=== PATIENT | male | born 1995 | race Caucasian/White ===

== ENCOUNTER 2017-07-28 19:24 | Inpatient (IN) | payer OTHER ==
[2017-07-28 21:00] VITALS: BMI 21.9
--- NOTE | 2017-07-28 21:31 | HP ---
CIWA Score - CIWA Score Nausea/Vomitin Muscle Tremors: 4-Moderate,w/Arms Extend Anxiety: 4-Mod. Anxious/Guarded Agitation: 4-Moderately Restless Paroxysmal Sweats: 1-Minimal Palms Moist Orientation: 0-Oriented Tacttile Disturbances: 0-None Auditory Disturbances: 0-None Visual Disturbances: 0-None Headache: 3-Moderate CIWA-Ar Total Score: 18 Admission ROS BHS - HPI Chief Complaint: Alcohol withdrawal symptoms Allergies/Adverse Reactions: Allergies Allergy/AdvReac Type Severity Reaction Status Date / Time No Known Allergies Allergy Verified 07/28/17 21:27 History of Present Illness: 22 years old male with long history of alcohol dependence and 4 years history of cocaine dependence is seeking admission to detox. This is patient's first detox and first admission to [facility]. He denies past medical history and suicidal ideation at this time. Exam Limitations: No Limitations - Ebola screening Have you traveled outside of the country in the last 21 days: No (N) Have you had contact with anyone from an Ebola affected area: No Have you been sick,other than usual withdrawal symptoms: No Do you have a fever: No - Review of Systems Constitutional: Chills, Malaise, Night Sweats EENT: reports: No Symptoms Reported Respiratory: reports: No Symptoms reported Cardiac: reports: No Symptoms Reported GI: reports: No Symptoms Reported : reports: No Symptoms Reported Musculoskeletal: reports: Back Pain, Muscle Pain, Muscle Weakness Integumentary: reports: Dryness, Flushing Neuro: reports: Headache, Tingling, Tremors Endocrine: reports: No Symptoms Reported Hematology: reports: No Symptoms Reported Psychiatric: reports: Agitated, Anxious, Depressed Other Systems: Reviewed and Negative Patient History - Patient Medical History Hx Anemia: No Hx Asthma: No Hx Chronic Obstructive Pulmonary Disease (COPD): No Hx Cancer: No Hx Cardiac Disorders: No Hx Congestive Heart Failure: No Hx Hypertension: No Hx Hypercholesterolemia: No Hx Pacemaker: No HX Cerebrovascular Accident: No Hx Seizures: No Hx Dementia: No Hx Diabetes: No Hx Gastrointestinal Disorders: No Hx Liver Disease: No Hx Genitourinary Disorders: No Hx Sexually Transmitted Disorders: No Hx Renal Disease (ESRD): No Hx Thyroid Disease: No Hx Human Immunodeficiency Virus (HIV): No (Never tested) Hx Hepatitis C: No Hx Depression: No Hx Suicide Attempt: No (Denies suicide attempt and suicidal ideation at this time) Hx Bipolar Disorder: No Hx Schizophrenia: No - Patient Surgical History Past Surgical History: No - PPD History Previous Implant?: Yes Documented Results: Negative w/o proof Implanted On Prior [facility] Admission?: No PPD to be Administered?: Yes - Reproductive History Patient is a Female of Child Bearing Age (11 -55 yrs old): No (MALE) - Smoking Cessation Smoking history: Current every day smoker Have you smoked in the past 12 months: Yes Aproximately how many cigarettes per day: 20 Hx Chewing Tobacco Use: No Initiated information on smoking cessation: Yes 'Breaking Loose' booklet given: 07/28/17 - Substance & Tx. History Hx Alcohol Use: Yes Hx Substance Use: Yes Substance Use Type: Alcohol, Cocaine Hx Substance Use Treatment: No - Substances Abused Alcohol Route: Oral Frequency: Daily Amount used: VODKA - I PINT Age of first use: 13 Date of Last Use: 07/28/17 Cocaine Route: Smoking Frequency: Daily Amount used: 5 GRAMS Age of first use: 18 Date of Last Use: 07/28/17 Family Disease History - Family Disease History Family History: Denies Admission Physical Exam [facility] - Vital Signs Vital Signs: Vital Signs - 24 hr 07/28/17 20:58 Temperature 97.8 F Pulse Rate 97 H Respiratory 20 Rate Blood Pressure 137/89 - Physical General Appearance: Yes: Moderate Distress HEENTM: Yes: EOMI, Normal ENT Inspection, Normocephalic, Normal Voice, LEANA Respiratory: Yes: Lungs Clear, Normal Breath Sounds, No Respiratory Distress Neck: Yes: Supple Breast: Yes: Breast Exam Deferred Cardiology: Yes: Tachycardia Abdominal: Yes: Normal Bowel Sounds, Soft Genitourinary: Yes: Within Normal Limits Back: Yes: Normal Inspection Musculoskeletal: Yes: Back pain Extremities: Yes: Tremors Neurological: Yes: Alert, Normal Mood/Affect Integumentary: Yes: Warm - Diagnostic (1) Alcohol dependence with uncomplicated withdrawal Current Visit: Yes Status: Chronic (2) Cocaine dependence, uncomplicated Current Visit: Yes Status: Chronic S Breath Alcohol Content Breath Alcohol Content: 0.029 Urine Drug Screen - Results Drug Screen Negative: No Urine Drug Screen Results: OBIE-Cocaine
[2017-07-28] MEDS ORDERED: MAGNESIUM HYDROX 2400MG/30ML ORAL SUSPENSION 30 ML CUP PO PRN (21:40)
[2017-07-28] MEDS ORDERED: IBUPROFEN 400 MG TABLET (FP) PO PRN (21:40)
[2017-07-28] MEDS ORDERED: NICOTINE POLACRILEX 2 MG GUM BUC PRN (21:40)
[2017-07-28] MEDS ORDERED: MAG HYDROX/AL HYDROX/SIMETH 30 ML UNIT-DOSE CUP PO PRN (21:40)
[2017-07-28] MEDS ORDERED: MAGNESIUM CITRATE 300 ML BOTTLE PO PRN (21:40)
[2017-07-28] MEDS ORDERED: MENTHOL/PHENOL 1 EACH UD MM PRN (21:40)
[2017-07-28] MEDS ORDERED: LOPERAMIDE HCL 2 MG CAPSULE PO PRN (21:40)
[2017-07-28] MEDS ORDERED: P-EPHED 60MG/TRIPROLIDI 2.5MG TABLET PO PRN (21:40)
[2017-07-28] MEDS ORDERED: ACETAMINOPHEN 325 MG TABLET (FP) PO PRN (21:45)
[2017-07-28] MEDS ORDERED: guaiFENesin/D-METHORPHAN HB 10 ML UNIT-DOSE CUPS PO PRN (21:45)
[2017-07-28] MEDS ORDERED: MELATONIN 5 MG TABLETS PO PRN (22:00)
[2017-07-29] MEDS ORDERED: chlordiazePOXIDE HCL 25 MG CAPSULE PO ONE (01:49)
[2017-07-29] MEDS ORDERED: chlordiazePOXIDE HCL 25 MG CAPSULE PO PRN (01:49)
[2017-07-29] MEDS: THIAMINE HCL 100 MG TABLET (FP) PO SCH ×2 (03:16→22:19)
[2017-07-29] MEDS ORDERED: chlordiazePOXIDE HCL 25 MG CAPSULE PO SCH (05:00)
--- NOTE | 2017-07-29 10:00 | PN ---
BHS CIWA - CIWA Score Nausea/Vomitin Muscle Tremors: 3 Anxiety: 3 Agitation: 3 Paroxysmal Sweats: 1-Minimal Palms Moist Orientation: 0-Oriented Tacttile Disturbances: 1-Very Mild Itch/Numbness Auditory Disturbances: 1-Very Mild Visual Disturbances: 0-None Headache: 1-Very Mild CIWA-Ar Total Score: 16 BHS Progress Note (SOAP) Subjective: ALERT,IRRITABLE,TREMOR,INTERRUPTED SLEEP,PAIN IN THE BODY AND BACK Objective: 07/29/17 09:56 Vital Signs Temperature 97.7 F 07/29/17 06:00 Pulse Rate 75 07/29/17 06:00 Respiratory Rate 18 07/29/17 06:00 Blood Pressure 124/67 07/29/17 06:00 O2 Sat by Pulse Oximetry (%) EKG NSR,INCOMPLETE RBBB,QT 362/422 LAB PENDING Assessment: 07/29/17 09:59 WITHDRAWAL SYMPTOM Plan: CONTINUE DETOX,PATIENT REQUESTED REGIMEN TO CHAGE TO VALIUM INSTEAD OF LIBRIUM
[2017-07-29 10:05] LABS: HEMATOCRIT 45.4 % (35.4-49); HEMOGLOBIN 15.2 GM/dL (11.7-16.9); MCH 29.8 pg (25.7-33.7); MCHC 33.5 g/dl (32.0-35.9); MEAN CELL VOLUME 88.9 fl (80-96); MEAN PLT VOLUME 9.4 fl (7.5-11.1); PLATELET COUNT 257 K/MM3 (134-434); RBC 5.11 M/mm3 (4.00-5.60); RDW 13.4 % (11.9-15.9); WHITE BLOOD COUNT 7.7 K/mm3 (4.0-10.0)
[2017-07-29 10:13] LABS: URINE APPEARANCE CLEAR; URINE BILIRUBIN NEGATIVE (<2.0 mg/dL); URINE COLOR LTYELLOW; URINE GLUCOSE (UA) NEGATIVE (NEGATIVE); URINE KETONE NEGATIVE (NEGATIVE); URINE LEUK ESTERASE NEGATIVE (NEGATIVE); URINE NITRITE NEGATIVE (NEGATIVE); URINE PROTEIN NEGATIVE (NEGATIVE); URINE UROBILINOGEN NEGATIVE mg/dL (0.2-1.0)
[2017-07-29 10:18] LABS: ALBUMIN 4.4 g/dl (3.4-5.0); ANION GAP 5 (8-16); BLOOD UREA NITROGEN 20 mg/dL (7-18); CALCIUM 8.9 mg/dL (8.5-10.1); CHLORIDE 106 mmol/L (98-107); CO2 29 mmol/L (21-32); GLUCOSE,RANDOM 76 mg/dL (74-106); POTASSIUM 4.5 mmol/L (3.5-5.1); SODIUM 140 mmol/L (136-145)
[2017-07-29 10:20] LABS: ALK PHOS 112 U/L (45-117); BILIRUBIN,TOTAL 0.5 mg/dL (0.2-1.0); SGOT/AST 19 U/L (15-37); SGPT/ALT 35 U/L (12-78); TOT PROT 7.4 g/dl (6.4-8.2)
[2017-07-29] MEDS ORDERED: diazePAM 5 MG TABLET PO ONE (10:25)
[2017-07-29] MEDS: NICOTINE 14 MG/24 HOURS TOPICAL PATCH TD SCH (10:45)
[2017-07-29] MEDS: PRENATAL VITAMINS W/ FOLIC ACID TABLET (FP) PO SCH (10:45)
--- NOTE | 2017-07-29 11:27 | EKG ---
Test Reason : Blood Pressure : / mmHG Vent. Rate : 082 BPM Atrial Rate : 082 BPM P-R Int : 176 ms QRS Dur : 110 ms QT Int : 362 ms P-R-T Axes : 063 084 064 degrees QTc Int : 422 ms NORMAL SINUS RHYTHM INCOMPLETE RIGHT BUNDLE BRANCH BLOCK NO PREVIOUS ECGS AVAILABLE Confirmed by BISHOP BUTTS MD ([id number]) on 07/29/2017 11:26:53 AM Referred By: Confirmed By:BISHOP BUTTS MD
[2017-07-29] MEDS: diazePAM 5 MG TABLET PO SCH ×2 (13:55→22:19)
[2017-07-30] MEDS ORDERED: chlordiazePOXIDE HCL 25 MG CAPSULE PO SCH (05:00)
[2017-07-30] MEDS: diazePAM 5 MG TABLET PO SCH ×3 (06:19→22:43)
--- NOTE | 2017-07-30 08:49 | EKG ---
Test Reason : Blood Pressure : / mmHG Vent. Rate : 077 BPM Atrial Rate : 077 BPM P-R Int : 172 ms QRS Dur : 106 ms QT Int : 366 ms P-R-T Axes : 059 083 053 degrees QTc Int : 414 ms NORMAL SINUS RHYTHM RSR' OR QR PATTERN IN V1 SUGGESTS RIGHT VENTRICULAR CONDUCTION DELAY BORDERLINE ECG WHEN COMPARED WITH ECG OF 29-JUL-2017 01:23, NO SIGNIFICANT CHANGE WAS FOUND Confirmed by RHIANNA MATTHEWS, TERESA ([id number]) on 07/30/2017 8:48:57 AM Referred By: Confirmed By:TERESA MOCTEZUMA MD
[2017-07-30] MEDS: NICOTINE 14 MG/24 HOURS TOPICAL PATCH TD SCH (10:45)
[2017-07-30] MEDS: PRENATAL VITAMINS W/ FOLIC ACID TABLET (FP) PO SCH (10:45)
[2017-07-30] MEDS: diazePAM 5 MG TABLET PO PRN (10:46)
--- NOTE | 2017-07-30 12:08 | PN ---
BHS CIWA - CIWA Score Nausea/Vomitin Muscle Tremors: 3 Anxiety: 2 Agitation: 2 Paroxysmal Sweats: 1-Minimal Palms Moist Orientation: 0-Oriented Tacttile Disturbances: 1-Very Mild Itch/Numbness Auditory Disturbances: 1-Very Mild Visual Disturbances: 0-None Headache: 2-Mild CIWA-Ar Total Score: 15 BHS Progress Note (SOAP) Subjective: ALERT,IRRITABLE,ANXIOUS,INTERRUPTED SLEEP,PAIN IN THE BODY Objective: 07/30/17 12:05 Vital Signs Temperature 97.2 F L 07/30/17 09:23 Pulse Rate 105 H 07/30/17 09:23 Respiratory Rate 20 07/30/17 09:23 Blood Pressure 124/71 07/30/17 09:23 O2 Sat by Pulse Oximetry (%) Assessment: 07/30/17 12:06 WITHDRAWAL SYMPTOM Plan: CONTINUE DETOX,PSYCHIATRIC REEVALUATION FOR MEDICATIONS FOR ANXIETY AND INSOMNIA
--- NOTE | 2017-07-30 15:05 | CONSULT ---
[facility] Psychiatric Consult - Data Date of interview: 07/30/17 Admission source: [facility] Identifying data: First admission to [facility] for this 22 y/o male from [place] ancestry seeking detox treatment on for alcohol and cocaine dependence.Patient is single without children,domiciled (lives with his mother),currently unemployed and supported by relatives. Substance Abuse History: Confirmed by patient in my interview.Smoking history: Current every day smoker. Have you smoked in the past 12 months: Yes. Aproximately how many cigarettes per day: 20. Hx Chewing Tobacco Use: No. Initiated information on smoking cessation: Yes. 'Breaking Loose' booklet given : 07/28/17. - Substance & Tx. History. Hx Alcohol Use: Yes. Hx Substance Use : Yes. Substance Use Type: Alcohol, Cocaine. Hx Substance Use Treatment: No. - Substances Abused. Alcohol. Route: Oral. Frequency: Daily. Amount used : VODKA - I PINT. Age of first use: 13. Date of Last Use: 07/28/17. Cocaine. Route: Smoking. Frequency: Daily. Amount used: 5 GRAMS. Age of first use: 18. Date of Last Use: 07/28/17 Medical History: Patient endorses good general health. Psychiatric History: Patient denies. Physical/Sexual Abuse/Trauma History: Patient denies. Additional Comment: Urine Drug Screen Results: OBIE-Cocaine.Noted. Mental Status Exam - Mental Status Exam Alert and Oriented to: Time, Place, Person Cognitive Function: Good Patient Appearance: Well Groomed (tattoos on chest and right forearm) Mood: Hopeful, Euthymic Affect: Appropriate, Normal Range Patient Behavior: Appropriate (friendly), Cooperative Speech Pattern: Clear, Appropriate Voice Loudness: Normal Thought Process: Intact, Goal Oriented Thought Disorder: Not Present Hallucinations: Denies Suicidal Ideation: Denies Homicidal Ideation: Denies Sleep: Poorly, Difficulty falling asleep Appetite: Good Muscle strength/Tone: Normal Gait/Station: Normal Psychiatric Findings - Problem List ([place] 1, 2,3) (1) Alcohol dependence with uncomplicated withdrawal Current Visit: Yes Status: Acute (2) Cocaine dependence, uncomplicated Current Visit: Yes Status: Acute (3) Nicotine dependence Current Visit: Yes Status: Acute (4) Insomnia Current Visit: Yes Status: Acute - Initial Treatment Plan Initial Treatment Plan: Psychoeducation.Detoxification.Sleep hygiene.Ambien 10 mg po hs prn.Patient is made aware of potential for parasomnias (sleep-walking) .Mr Pate agrees to this careplan.Observation.
[2017-07-30] MEDS: THIAMINE HCL 100 MG TABLET (FP) PO SCH (22:43)
[2017-07-30] MEDS: ZOLPIDEM TARTRATE 10 MG TABLET (PARK CARE ONLY) PO PRN (22:44)
[2017-07-31] MEDS ORDERED: chlordiazePOXIDE 5 MG CAPSULE PO SCH (05:00)
[2017-07-31] MEDS: diazePAM 5 MG TABLET PO SCH ×2 (10:34→22:40)
[2017-07-31] MEDS: PRENATAL VITAMINS W/ FOLIC ACID TABLET (FP) PO SCH (10:34)
[2017-07-31] MEDS: NICOTINE 14 MG/24 HOURS TOPICAL PATCH TD SCH (10:35)
[2017-07-31] MEDS: hydrOXYzine PAMOATE 50 MG CAPSULE (FP) PO PRN (13:03)
[2017-07-31] MEDS: diazePAM 5 MG TABLET PO PRN (13:03)
--- NOTE | 2017-07-31 14:05 | PN ---
BHS Progress Note (SOAP) Subjective: alert,irritable,anxious,interrupted sleep Objective: 07/31/17 14:04 Vital Signs Temperature 98.2 F 07/31/17 09:15 Pulse Rate 115 H 07/31/17 09:15 Respiratory Rate 18 07/31/17 09:15 Blood Pressure 127/79 07/31/17 09:15 O2 Sat by Pulse Oximetry (%) Assessment: 07/31/17 14:05 withdrawal symptom Plan: continue detox
[2017-07-31] MEDS: ZOLPIDEM TARTRATE 10 MG TABLET (PARK CARE ONLY) PO PRN (22:40)
[2017-07-31] MEDS: THIAMINE HCL 100 MG TABLET (FP) PO SCH (22:40)
[2017-08-01] MEDS ORDERED: chlordiazePOXIDE HCL 10 MG CAPSULE PO SCH (05:00)
[2017-08-01] MEDS: diazePAM 5 MG TABLET PO SCH ×2 (10:58→22:41)
[2017-08-01] MEDS: NICOTINE 14 MG/24 HOURS TOPICAL PATCH TD SCH (10:58)
[2017-08-01] MEDS: hydrOXYzine PAMOATE 50 MG CAPSULE (FP) PO PRN ×2 (10:58→18:50)
[2017-08-01] MEDS: PRENATAL VITAMINS W/ FOLIC ACID TABLET (FP) PO SCH (10:58)
--- NOTE | 2017-08-01 13:03 | PN ---
S Progress Note (SOAP) Subjective: ALERT,IRRITABLE,ANXIOUS,INTERRUPTED SLEEP Objective: 08/01/17 13:02 Vital Signs Temperature 97.7 F 08/01/17 09:29 Pulse Rate 94 H 08/01/17 09:29 Respiratory Rate 16 08/01/17 09:29 Blood Pressure 138/81 08/01/17 09:29 O2 Sat by Pulse Oximetry (%) Assessment: 08/01/17 13:02 WITHDRAWAL SYMPTOM Plan: CONTINUE DETOX,DISCHARGE IN AM
[2017-08-01] MEDS: THIAMINE HCL 100 MG TABLET (FP) PO SCH (22:41)
[2017-08-01] MEDS: ZOLPIDEM TARTRATE 10 MG TABLET (PARK CARE ONLY) PO PRN (22:41)
--- NOTE | 2017-08-02 08:33 | PN ---
S Progress Note (SOAP) Subjective: ALERT,NO COMPLAINT Objective: 08/02/17 08:32 Vital Signs Temperature 97.3 F L 08/02/17 06:00 Pulse Rate 78 08/02/17 06:00 Respiratory Rate 18 08/02/17 06:00 Blood Pressure 106/62 08/02/17 06:00 O2 Sat by Pulse Oximetry (%) Assessment: 08/02/17 08:32 DETOX COMPLETED,NO WITHDRAWAL SYMPTOM Plan: DISCHARGE TODAY,FOLLOW UP WITH AFTER CARE PROGRAM ARRANGEMENT
--- NOTE | 2017-08-02 08:39 | DS ---
[facility] Detox Discharge Summary Admission Date: 07/28/17 Discharge Date: 08/02/17 - History Present History: Alcohol Dependence, Cocaine Dependence Additional Comments: FOLLOW UP WITH AFTER CARE PROGRAM ARRANGEMENT Pertinent Past History: INSOMNIA - Physical Exam Results Vital Signs: Vital Signs Temperature 97.3 F L 08/02/17 06:00 Pulse Rate 78 08/02/17 06:00 Respiratory Rate 18 08/02/17 06:00 Blood Pressure 106/62 08/02/17 06:00 O2 Sat by Pulse Oximetry (%) Pertinent Admission Physical Exam Findings: WITHDRAWAL SIGNS AND SYMPTOM Laboratory Last Values WBC 7.7 K/mm3 (4.0-10.0) 07/29/17 07:50 RBC 5.11 M/mm3 (4.00-5.60) 07/29/17 07:50 Hgb 15.2 GM/dL (11.7-16.9) 07/29/17 07:50 Hct 45.4 % (35.4-49) 07/29/17 07:50 MCV 88.9 fl (80-96) 07/29/17 07:50 MCH 29.8 pg (25.7-33.7) 07/29/17 07:50 MCHC 33.5 g/dl (32.0-35.9) 07/29/17 07:50 RDW 13.4 % (11.9-15.9) 07/29/17 07:50 Plt Count 257 K/MM3 (134-434) 07/29/17 07:50 MPV 9.4 fl (7.5-11.1) 07/29/17 07:50 Sodium 140 mmol/L (136-145) 07/29/17 07:50 Potassium 4.5 mmol/L (3.5-5.1) 07/29/17 07:50 Chloride 106 mmol/L (98-107) 07/29/17 07:50 Carbon Dioxide 29 mmol/L (21-32) 07/29/17 07:50 Anion Gap 5 (8-16) L 07/29/17 07:50 BUN 20 mg/dL (7-18) H 07/29/17 07:50 Creatinine 1.0 mg/dL (0.7-1.3) 07/29/17 07:50 Creat Clearance w eGFR > 60 (>60) 07/29/17 07:50 Random Glucose 76 mg/dL (74-106) 07/29/17 07:50 Calcium 8.9 mg/dL (8.5-10.1) 07/29/17 07:50 Total Bilirubin 0.5 mg/dL (0.2-1.0) 07/29/17 07:50 AST 19 U/L (15-37) 07/29/17 07:50 ALT 35 U/L (12-78) 07/29/17 07:50 Alkaline Phosphatase 112 U/L (45-117) 07/29/17 07:50 Total Protein 7.4 g/dl (6.4-8.2) 07/29/17 07:50 Albumin 4.4 g/dl (3.4-5.0) 07/29/17 07:50 Urine Color Ltyellow 07/29/17 07:30 Urine Appearance Clear 07/29/17 07:30 Urine pH 7.0 (5.0-8.0) 07/29/17 07:[address] 1.019 (1.001-1.035) 07/29/17 07:30 Urine Protein Negative (NEGATIVE) 07/29/17 07:30 Urine Glucose (UA) Negative (NEGATIVE) 07/29/17 07:30 Urine Ketones Negative (NEGATIVE) 07/29/17 07:30 Urine Blood Negative (NEGATIVE) 07/29/17 07:30 Urine Nitrite Negative (NEGATIVE) 07/29/17 07:30 Urine Bilirubin Negative (<2.0 mg/dL) 07/29/17 07:30 Urine Urobilinogen Negative mg/dL (0.2-1.0) 07/29/17 07:30 Ur Leukocyte Esterase Negative (NEGATIVE) 07/29/17 07:30 RPR Titer Nonreactive (NONREACTIVE) 07/29/17 07:50 - Treatment Hospital Course: Detox Protocol Followed, Detoxed Safely, Responded well, Discharged Condition Good Patient has Accepted a Rehab Referral to: DECLINED - Medication Discharge Medications: Ambulatory Orders NK [No Known Home Medication] 07/28/17 - Diagnosis (1) Alcohol dependence with uncomplicated withdrawal Current Visit: Yes Status: Acute (2) Cocaine dependence, uncomplicated Current Visit: Yes Status: Acute - AMA Did Patient Leave Against Medical Advice: No
[2017-08-02] MEDS ORDERED: diazePAM 5 MG TABLET PO SCH (10:00)
[2017-08-02] MEDS: PRENATAL VITAMINS W/ FOLIC ACID TABLET (FP) PO SCH (10:34)
[2017-08-02] MEDS: NICOTINE 14 MG/24 HOURS TOPICAL PATCH TD SCH (10:34)
--- NOTE | 2017-08-02 11:03 | PN ---
S Progress Note Note: PATIENT IS ANXIOUS,AGITATED ABOUT DISCHARGE,WILL KEEP PATIENT ON MONITORING UNTIL PROPER PLACEMENT AND SAFETY ENVIRONMENT ,WILL MONITOR PATIENT FOR TODAY,DISCHARGE IN AM
[2017-08-02] MEDS: THIAMINE HCL 100 MG TABLET (FP) PO SCH (22:32)
[2017-08-02] MEDS: ZOLPIDEM TARTRATE 10 MG TABLET (PARK CARE ONLY) PO PRN (22:32)
--- NOTE | 2017-08-03 08:34 | PN ---
S Progress Note (SOAP) Subjective: alert,no compliant Objective: 08/03/17 08:32 Vital Signs Temperature 97.5 F L 08/03/17 07:45 Pulse Rate 79 08/03/17 07:45 Respiratory Rate 18 08/03/17 07:45 Blood Pressure 131/70 08/03/17 07:45 O2 Sat by Pulse Oximetry (%) Assessment: 08/03/17 08:32 detox completed,no withdrawal symptom Plan: discharge today,follow up with after care program as arrangement
--- NOTE | 2017-08-03 08:38 | DS ---
[facility] Detox Discharge Summary Admission Date: 07/28/17 Discharge Date: 08/03/17 - History Present History: Alcohol Dependence, Cannabis Dependence Additional Comments: follow up with after care program as arrangement Pertinent Past History: nicotine dependence insomnia - Physical Exam Results Vital Signs: Vital Signs Temperature 97.5 F L 08/03/17 07:45 Pulse Rate 79 08/03/17 07:45 Respiratory Rate 18 08/03/17 07:45 Blood Pressure 131/70 08/03/17 07:45 O2 Sat by Pulse Oximetry (%) Pertinent Admission Physical Exam Findings: withdrawal signs and symptom Vital Signs Temperature 97.5 F L 08/03/17 07:45 Pulse Rate 79 08/03/17 07:45 Respiratory Rate 18 08/03/17 07:45 Blood Pressure 131/70 08/03/17 07:45 O2 Sat by Pulse Oximetry (%) Laboratory Last Values WBC 7.7 K/mm3 (4.0-10.0) 07/29/17 07:50 RBC 5.11 M/mm3 (4.00-5.60) 07/29/17 07:50 Hgb 15.2 GM/dL (11.7-16.9) 07/29/17 07:50 Hct 45.4 % (35.4-49) 07/29/17 07:50 MCV 88.9 fl (80-96) 07/29/17 07:50 MCH 29.8 pg (25.7-33.7) 07/29/17 07:50 MCHC 33.5 g/dl (32.0-35.9) 07/29/17 07:50 RDW 13.4 % (11.9-15.9) 07/29/17 07:50 Plt Count 257 K/MM3 (134-434) 07/29/17 07:50 MPV 9.4 fl (7.5-11.1) 07/29/17 07:50 Sodium 140 mmol/L (136-145) 07/29/17 07:50 Potassium 4.5 mmol/L (3.5-5.1) 07/29/17 07:50 Chloride 106 mmol/L (98-107) 07/29/17 07:50 Carbon Dioxide 29 mmol/L (21-32) 07/29/17 07:50 Anion Gap 5 (8-16) L 07/29/17 07:50 BUN 20 mg/dL (7-18) H 07/29/17 07:50 Creatinine 1.0 mg/dL (0.7-1.3) 07/29/17 07:50 Creat Clearance w eGFR > 60 (>60) 07/29/17 07:50 Random Glucose 76 mg/dL (74-106) 07/29/17 07:50 Calcium 8.9 mg/dL (8.5-10.1) 07/29/17 07:50 Total Bilirubin 0.5 mg/dL (0.2-1.0) 07/29/17 07:50 AST 19 U/L (15-37) 07/29/17 07:50 ALT 35 U/L (12-78) 07/29/17 07:50 Alkaline Phosphatase 112 U/L (45-117) 07/29/17 07:50 Total Protein 7.4 g/dl (6.4-8.2) 07/29/17 07:50 Albumin 4.4 g/dl (3.4-5.0) 07/29/17 07:50 Urine Color Ltyellow 07/29/17 07:30 Urine Appearance Clear 07/29/17 07:30 Urine pH 7.0 (5.0-8.0) 07/29/17 07:30 Ur Specific [place] 1.019 (1.001-1.035) 07/29/17 07:30 Urine Protein Negative (NEGATIVE) 07/29/17 07:30 Urine Glucose (UA) Negative (NEGATIVE) 07/29/17 07:30 Urine Ketones Negative (NEGATIVE) 07/29/17 07:30 Urine Blood Negative (NEGATIVE) 07/29/17 07:30 Urine Nitrite Negative (NEGATIVE) 07/29/17 07:30 Urine Bilirubin Negative (<2.0 mg/dL) 07/29/17 07:30 Urine Urobilinogen Negative mg/dL (0.2-1.0) 07/29/17 07:30 Ur Leukocyte Esterase Negative (NEGATIVE) 07/29/17 07:30 RPR Titer Nonreactive (NONREACTIVE) 07/29/17 07:50 - Treatment Hospital Course: Detox Protocol Followed, Detoxed Safely, Responded well, Discharged Condition Good Patient has Accepted a Rehab Referral to: declined - Medication Discharge Medications: Ambulatory Orders NK [No Known Home Medication] 07/28/17 - Diagnosis (1) Alcohol dependence with uncomplicated withdrawal Current Visit: Yes Status: Acute (2) Cocaine dependence, uncomplicated Current Visit: Yes Status: Acute (3) Insomnia Current Visit: Yes Status: Acute (4) Nicotine dependence Current Visit: Yes Status: Acute - AMA Did Patient Leave Against Medical Advice: No
[2017-08-03 09:57] VITALS: BP 129/78; PULSE 85; TEMP 97.2
[2017-08-03] MEDS: PRENATAL VITAMINS W/ FOLIC ACID TABLET (FP) PO SCH (10:11)
[2017-08-03] MEDS: NICOTINE 14 MG/24 HOURS TOPICAL PATCH TD SCH (10:11)
== END 2017-08-03 11:44 | disposition home or self-care (01) | DRG 774 ==
LOC: YASAS 19:24 → Y6N 23:16
PROVIDERS: ADMIT Surgery; ATTEND Surgery
PROC: HZ2ZZZZ Detoxification Services for Substance Abuse Treatment (ICD-10-PCS; principal; 2017-07-28)
DX: F10.230 Alcohol dependence with withdrawal, uncomplicated (principal); F14.20 Cocaine dependence, uncomplicated; F17.210 Nicotine dependence, cigarettes, uncomplicated; G47.00 Insomnia, unspecified
CPT/HCPCS: 36415; 80053; 81003; 85027; 86593; 93005; 93010